=== PATIENT | female | born 1995 | race Caucasian/White ===

== ENCOUNTER → 2016-12-07 | Outpatient (CLI) | payer OTHER ==
[2016-12-07 14:37] LABS: BASO % 0.5 %; BASO ABS # 0.03 K/uL (0-0.2); COMPLETE YES; EOS % 5.9 %; HEMATOCRIT 41.5 % (37-47); IG% 0.2 %; LYMPH % 43.2 %; LYMPH ABS # 2.47 K/uL (1.2-3.4); MEAN CELL VOLUME 90.6 fL (80-100); MEAN CORPUSCULAR HEMOGLOBIN 29.9 pg (25-34); MEAN PLATELET VOLUME 9.1 fL (7.4-10.4); NEUT % 46.2 %; PLATELET COUNT 313 K/uL (130-400); RED BLOOD COUNT 4.58 M/uL (4.2-5.4); WHITE BLOOD COUNT 5.72 K/uL (4.8-10.8)
[2016-12-07 14:48] LABS: INR 1.1 (0.9-1.1); PARTIAL THROMBOPLASTIN RATIO 1.2; PROTHROMBIN TIME (PATIENT) 11.3 SECONDS (9.0-12.0)
[2016-12-07 15:03] LABS: POTASSIUM 3.9 mmol/L (3.5-5.1)
== END | disposition home or self-care (01) ==
LOC: C.LAB 12:57
DX: Z01.818 Encounter for other preprocedural examination (principal)

== ENCOUNTER → 2016-12-15 | Day surgery (SDC) | payer OTHER ==
[2016-12-14 15:24] VITALS: Ht 157.5 cm; Wt 42.7 kg
[~2016-12-15] VITALS: Ht 157.5 cm; Wt 42.7 kg
[~2016-12-15] MED LIST: ATROPINE SULFATE 0.1 MG/ML 5ML SYR IV PRN; BACITRACIN/POLYMYXIN B OINT 15 GM TUBE EXT ONE; CEFAZOLIN 2000 MG/60 ML D5W IV SCH; DEXAMETHASONE SOD INJ 4 MG/ML VIAL ONE; EpHEDrine SULFATE INJ 50 MG/ML AMP IV PRN; FENTANYL CITRATE INJ 50 MCG/1 ML 2 ML VIAL IV PRN; FENTANYL CITRATE INJ 50 MCG/1 ML 2 ML VIAL ONE; HYDROCODONE/ACETAMOPHEN 5/325MG TAB PO PRN; LACTATED RINGER'S 1000ML 1,000 ML IV SCH; LIDOCAINE HCL 2% 2 ML VIAL (20MG/ML) ONE; LIDOCAINE/EPINEPHRINE 1% INJ 50 ML VIAL ONE; MIDAZOLAM HCL 1 MG/ML 2ML VIAL ONE; ONDANSETRON INJ 2 MG/ML 2 ML VIAL IV PRN; ONDANSETRON INJ 2 MG/ML 2 ML VIAL ONE; PATIENT'S ALLERGY INFO NEEDS ENTERED SCH; PROPOFOL IV EMULSION 10 MG/ML 20 ML VIAL IV ONE; SCOPOLAMINE 1.5 MG TDSY TD ONE
--- NOTE | 2016-12-15 06:50 | History & Physical Bridge - [place] ---
H&P Re-Evaluation Bridge Note: I have examined the patient, reviewed the History & Physical and in the interval since the performance of the History & Physical I have noted the following changes of clinical significance: No changes noted
--- NOTE | 2016-12-15 08:00 | Discharge Instructions ---
Discharge Instructions Date of Service Dec 15, 2016. Admission Reason for Admission: Lower Lip Mucocele Discharge Discharge Diagnosis / Problem: SAME Discharge Goals Goal(s): Therapeutic intervention Activity Recommendations Activity Limitations: as noted below 1. AVOID DRIVING WHILE ON [place] 2. ICE TO LOWER LIP MUCH TOLERATED FOR 2-3DAYS 3. AVOID HOT LIQUIDS/FOODS FOR 1WEEK . Current Hospital Diet Patient's current hospital diet: Discharge Diet Recommended Diet: Regular Diet Procedures Procedures Performed: Right Lower Lip Lesion(2) Excisional Biopsy Pending Studies Studies pending at discharge: no Medical Emergencies . Who to Call and When: Medical Emergencies: If at any time you feel your situation is an emergency, please call 911 immediately. . Non-Emergent Contact Non-Emergency issues call your: Surgeon . . "Provider Documentation" section prepared by Kj Garcia. . VTE Core Measure Inpt VTE Proph given/why not?: SCD's
--- NOTE | 2016-12-15 08:23 | OPERATIVE REPORT ---
DATE OF OPERATION: 12/15/2016 PREOPERATIVE DIAGNOSIS: Right lower lip mucocele. POSTOPERATIVE DIAGNOSIS: Right lower lip mucocele. PROCEDURE: Excisional biopsy of right lower lip mucocele. SURGEON: Dr. Kj Garcia. ANESTHESIA: General laryngeal mask airway. ESTIMATED BLOOD LOSS: 1 mL. FINDINGS: Right lower lip mucocele. SPECIMENS: Right lower lip lesion for permanent pathological assessment. COMPLICATIONS: None. INDICATIONS FOR THE PROCEDURE: The patient is a 21-year-old female with a right lower lip lesion, which is clinically consistent with lower lip mucocele. She presents for excisional biopsy on an outpatient elective basis. DESCRIPTION OF PROCEDURE: After informed consent had been obtained from the patient, the patient was wheeled to the operating room and placed on the operating table in the supine position. Monitors were placed. After induction of general anesthesia via laryngeal mask airway, 1 mL of 1% lidocaine with 1:100,000 epinephrine was used to inject the mucosa and submucosa overlying the planned incision site over the right lower lip. After allowing adequate time for anesthesia and vasoconstriction, a #15 scalpel was used to make an incision overlying the mucosa. A submucosal dissection of the right lower lip mucocele was undertaken. Inadvertently, the mucocele was popped and mucus was suctioned. Care was taken to remove the mucocele in its entirety down to the level of the orbicularis elsie musculature. The specimen was sent off for permanent pathological assessment. Bipolar electrocautery was used to achieve adequate hemostasis. The mucosal incision was then closed with 3 simple interrupted 4-0 chromic sutures. Incision was cleansed and dried. Antibiotic ointment was applied to the incision. This marked the end of the case. The patient tolerated the procedure well. There were no apparent complications. The patient had her laryngeal mask airway removed and was transferred to the recovery room in stable condition. I attest to the content of the Intraoperative Record and any orders documented therein. Any exceptio ns are noted below.
--- NOTE | 2016-12-15 09:03 | Anesthesia Progress Nt - [facility] ---
Anesthesia Post Op Note Date & Time Dec 15, 2016 at 09:03 Vital Signs Pain Intensity: 0 Vital Signs Past 12 Hours Date Time Temp Pulse Resp B/P Pulse Ox O2 Delivery O2 Flow Rate FiO2 12/15/16 08:42 80 17 12/15/16 08:42 79 17 98 12/15/16 08:40 115/70 12/15/16 08:40 36.6 99 Room Air 12/15/16 08:37 90 15 100 12/15/16 08:37 90 15 12/15/16 08:36 81 19 100 12/15/16 08:36 83 19 12/15/16 08:35 112/69 12/15/16 08:31 86 15 100 12/15/16 08:31 86 15 12/15/16 08:30 115/69 12/15/16 08:26 92 17 100 12/15/16 08:26 91 17 12/15/16 08:25 117/72 12/15/16 08:21 97 18 12/15/16 08:21 95 18 100 12/15/16 08:20 82 19 117/71 100 12/15/16 08:20 84 19 12/15/16 08:15 88 19 12/15/16 08:15 88 19 112/75 100 12/15/16 08:11 106/62 12/15/16 08:10 36.2 86 18 106/62 100 Mask 6 12/15/16 08:10 89 12/15/16 08:10 89 98 12/15/16 06:30 36.4 86 16 105/71 100 Room Air Notes Mental Status: alert / awake / arousable, participated in evaluation Pt Amnestic to Procedure: Yes Nausea / Vomiting: adequately controlled Pain: adequately controlled Airway Patency, RR, SpO2: stable & adequate BP & HR: stable & adequate Hydration State: stable & adequate Anesthetic Complications: no major complications apparent
[2016-12-15 09:17] VITALS: BP 111/77; PULSE 83; O2SAT 99
== END | disposition home or self-care (01) ==
LOC: X.SURG 06:20
DX: K13.79 Other lesions of oral mucosa (principal)